=== PATIENT | female | born 1975 | race Hispanic/Latino ===

== ENCOUNTER 2017-11-11 06:00 | Day surgery (SDC) | payer OTHER ==
[2017-11-05 09:08] VITALS: BMI 23.8
[2017-11-11 06:49] LABS: BASO # 0.1 K/uL (0.0-0.2); BASO % 0.8 % (0.0-2.0); EOS # 0.4 K/uL (0.0-0.7); EOS % 4.5 % (0.0-4.0); HEMOGLOBIN 12.8 g/dL (12.0-16.0); LYMPH % 34.8 % (20.0-40.0); MEAN CELL VOLUME 85.9 fl (81.0-99.0); MEAN CORPUSCULAR HEMOGLOBIN 29.3 pg (27.0-31.0); MEAN CORPUSCULAR HGB CONC 34.1 g/dL (33.0-37.0); MONO # 0.9 K/uL (0.0-0.8); MONO % 10.5 % (0.0-10.0); NEUT # 4.2 K/uL (1.8-7.0); NEUT % 49.4 % (50.0-75.0); NRBC % 0.1 % (0.0-0.0); RBC 4.37 Mil/uL (3.80-5.20); RED CELL DISTRIBUTION WIDTH 18.1 % (11.5-14.5); WHITE BLOOD COUNT 8.6 K/uL (4.8-10.8)
[2017-11-11] MEDS ORDERED: Lactated Ringer's 1,000 ML IV ONE (07:00)
[2017-11-11] MEDS ORDERED: Propofol 10 mg/ml Inj (20 ML) ONE (07:25)
[2017-11-11] MEDS ORDERED: Strong Iodine Topical Sol. 5%-10% ONE (07:34)
[2017-11-11] MEDS ORDERED: ACETIC ACID 3% 30 ML LIQUID MC ONE (07:34)
[2017-11-11] MEDS ORDERED: Ferric Subsulfate Sol(60 mL) ONE (07:35)
[2017-11-11] MEDS ORDERED: Lidocaine 2% Jelly (5 ml) TOP ONE (07:42)
[2017-11-11] MEDS ORDERED: Phenylephrine 10 mg/ml Inj ONE (07:46)
[2017-11-11] MEDS ORDERED: Succinylcholine 200 mg/10 ml Inj IV ONE (07:49)
[2017-11-11] MEDS ORDERED: Midazolam 2 MG/2 ML VIAL ONE (08:30)
[2017-11-11] MEDS ORDERED: Acetaminophen-Codeine 300/30 mg Tab PO PRN (09:09)
[2017-11-11] MEDS ORDERED: Naloxone 0.4 mg/ml Inj (Adult) ONE (09:21)
[2017-11-11] MEDS ORDERED: HYDROmorphone 0.5 mg/0.5 ml ISec IVP PRN (09:23)
[2017-11-11 10:53] VITALS: RESP 18
--- NOTE | 2017-11-11 11:59 | PCM.SURG1 ---
Surgeon's Initial Post Op Note - Surgeon's Notes Surgeon: Cole Gardner DO Medical Charge Entry Specialist: none Type of Anesthesia: General LMA Anesthesia Administered By: Dr Angel Pre-Operative Diagnosis: Irregular menses/possibel endometrial polyp Operative Findings: Endometrial polyp Post-Operative Diagnosis: same Operation Performed: Dilation/hysteroscopy/Myosure procedure/ removal of polyp Specimen/Specimens Removed: curerttage/polyp Estimated Blood Loss: EBL {In ML}: 0 Blood Products Given: N/A Drains Used: No Drains Post-Op Condition: Good Date of Surgery/Procedure: 11/11/17 Time of Surgery/Procedure: 08:30
[2017-11-11 12:55] VITALS: BP 97/59; PULSE 52; TEMP 97.7; O2SAT 97
--- NOTE | 2017-11-12 08:27 | OP ---
PROCEDURE DATE: 11/11/2017 PREOPERATIVE DIAGNOSIS: Irregular menses with possible endometrial polyp. POSTOPERATIVE DIAGNOSIS: Polyp. PROCEDURE: Dilation, hysteroscopy, MyoSure procedure, removal of polyps, and curettage. SURGEON: Mitchell Gardner DO TYPE OF ANESTHESIA: General LMA. ANESTHESIA ADMINISTERED BY: Meet Angel MD OPERATIVE FINDINGS: Endometrial polyp. ESTIMATED BLOOD LOSS: SPECIMEN: Curettage and endometrial polyp. DRAINS: None. POSTOPERATIVE CONDITION: Good. DESCRIPTION OF PROCEDURE: Margareth Canseco was brought to the operating room. Compression boots were placed on both lower extremities. She was in the supine position. After successful general LMA induction, she was placed in lithotomy position. She was draped and prepped in the usual sterile manner. A catheter was used to drain the bladder with contents. Exam under anesthesia was performed, cervix was closed, and uterus was not enlarged. Posterior vagina, a weighted speculum was placed. Right angle retractor in the anterior fornix of the vagina to visualize the cervix. The cervix was grasped at 12 o'clock position using a single tooth tenaculum. Thereafter, dilatation was done using dilators. Thereafter, a hysteroscope was then introduced into the endocervical canal and then into the uterus. Upon entering the uterus able to identify both ostia, both on the left side and the right side and the lower uterine aspect on the right side, it was noted to be an endometrial polyp. Thereafter using MyoSure, this endometrial polyp was obtained, curetting was performed circumferentially around the uterus, and all equipments were removed and accounted for. Specimen included the curetting and the endometrial polyp. All equipments were removed and accounted for. She tolerated the procedure well and was transferred to the recovery room in stable condition. All equipments and sponges accounted for. She is scheduled to follow up in the office in approximately 2 weeks to discuss pathology. Preoperatively, she was also given IV Ancef. Mitchell Gardner DO
== END 2017-11-11 12:45 | disposition home or self-care (01) ==
LOC: H.OPSURG 06:00
PROVIDERS: ATTEND Obstetrics & Gynecology
DX: N84.0 Polyp of corpus uteri (principal); N92.6 Irregular menstruation, unspecified; E78.5 Hyperlipidemia, unspecified; K21.9 Gastro-esophageal reflux disease without esophagitis; F41.9 Anxiety disorder, unspecified
CPT/HCPCS: 36415; 58558; 85025; 88305; J0330; J0690; J2001; J2250; J2310; J2370; J2704; J2765; J3010; J7030; J7120